=== PATIENT | female | born 1945 | race Caucasian/White ===

== ENCOUNTER 2017-02-18 08:41 | Emergency (ER) | payer OTHER ==
[2017-02-18 11:27] VITALS: BP 124/73
== END 2017-02-18 11:58 | disposition home or self-care (01) ==
LOC: ED 08:41
DX: J45.909 Unspecified asthma, uncomplicated (principal); E05.00 Thyrotoxicosis with diffuse goiter without thyrotoxic crisis or storm
CPT/HCPCS: J7512; J7620